=== PATIENT | female | born 1970 | race Caucasian/White ===

== ENCOUNTER 2017-08-01 09:08 | Emergency (ER) | payer BC ==
[2017-08-01 09:59] VITALS: BP 120/68
--- NOTE | 2017-08-01 10:08 | UC ---
Respiratory Complaint HPI - HPI Summary HPI Summary: 47 y/o female presents to the urgent care c/o persistent productive cough for 1 week. She also c/o of LF shoulder pain for the past 3 days. Pt states her cough is producing a green phlegm at times. Subjective fever at home. She has been taking Nyquil to alleviate symptoms. However about 3 days ago she started with shoulder pain. She hasn't been able to raise her arm. Pain is 7/10. She has been taking Naproxen PO for pain. She doesn't recall any injury. Pt denies SOB, chest pain, abdominal pain, numbness or tingling over the left upper extremity, N/V/D - History of Current Complaint Chief Complaint: UCGeneralIllness Stated Complaint: CONGESTION,SHOULDER PAIN Time Seen by Provider: 08/01/17 10:05 Hx Obtained From: Patient Hx Last Menstrual Period: 10 yrs ago - just had IUD removed Onset/Duration: Gradual Onset, Lasting Weeks - 1 week, Still Present Timing: Constant Severity Initially: Mild Severity Currently: Moderate Pain Intensity: 7 - Shoulder pain Pain Scale Used: 0-10 Numeric Character: Cough: Productive, Sputum Description: - green Aggravating Factors: Deep Breaths Alleviating Factors: OTC Meds Associated Signs And Symptoms: Positive: Fever - subjective at home - Risk Factors Pulmonary Embolism Risk Factors: Negative Cardiac Risk Factors: Negative Pseudomonas Risk Factors: Negative Tuberculosis Risk Factors: Negative - Allergies/Home Medications Allergies/Adverse Reactions: Allergies Allergy/AdvReac Type Severity Reaction Status Date / Time No Known Allergies Allergy Verified 08/01/17 09:54 Home Medications: Home Medications [id number]-Boloyepbsa-Trolj [Vicks Nyquil Severe Cold 5-6.25-10-325 mg] 1 tab PO BEDTIME PRN 08/01/17 [History Confirmed 08/01/17] PMH/Surg Hx/FS Hx/Imm Hx Previously Healthy: Yes - Pt denies PMHX - Surgical History Surgical History: Yes Surgery Procedure, Year, and Place: lumpectomy for pre hyperplasia - Family History Known Family History: Positive: Cardiac Disease - grandmother, Diabetes - grandmother Negative: Hypertension - Social History Occupation: Employed Full-time Lives: With Family Alcohol Use: Occasionally Substance Use Type: None Smoking Status (MU): Heavy Every Day Tobacco Smoker Type: Cigarettes Amount Used/How Often: 1/2 ppd Length of Time of Smoking/Using Tobacco: started age 13 Review of Systems Constitutional: Fever - subjective at home Skin: Negative Eyes: Negative ENT: Negative Respiratory: Cough - productive with green plegm Cardiovascular: Negative Gastrointestinal: Negative Genitourinary: Negative Motor: Negative Neurovascular: Negative Musculoskeletal: Other: - LF shoulder pain Neurological: Negative Psychological: Negative Is Patient Immunocompromised?: No All Other Systems Reviewed And Are Negative: Yes Physical Exam Triage Information Reviewed: Yes Appearance: Well-Appearing, No Pain Distress, Well-Nourished, Obese Vital Signs: Initial Vital Signs Temp 99.7 F 08/01/17 09:55 Pulse 106 08/01/17 09:55 Resp 16 08/01/17 09:55 BP 120/68 08/01/17 09:55 Pulse Ox 99 08/01/17 09:55 Vital Signs Reviewed: Yes Eye Exam: Normal Eyes: Positive: Conjunctiva Clear - PERRLA, EOMI ENT Exam: Normal ENT: Positive: Normal ENT inspection, Hearing grossly normal, Pharynx normal, Nasal congestion - edematous nasal mucosa, Nasal drainage - yellowish discharge , TMs normal Neck exam: Normal Neck: Positive: Supple, Nontender, No Lymphadenopathy Respiratory Exam: Normal Respiratory: Positive: Chest non-tender, Lungs clear, Normal breath sounds, No respiratory distress Cardiovascular Exam: Normal Cardiovascular: Positive: RRR, No Murmur, Pulses Normal, Brisk Capillary Refill Abdominal Exam: Normal Abdomen Description: Positive: Nontender, No Organomegaly, Soft. Negative: CVA Tenderness (R), CVA Tenderness (L) Bowel Sounds: Positive: Present Musculoskeletal: Positive: Other: - LF shoulder: The L shoulder is with/without obvious asymmetry or deformity when compared to the R shoulder. No surface trauma, ecchymosis, crepitus. No bony deformity or prominence of humeral head. No erythema, warmth. NT to palpation over the clavicle,scapula. positive tenderness over Acromoclavicular joint and humeral head with mild swelling, NT to palpation of the bicipital groove . NT to palpation of the muscles of the sternocleidomastoid, pectorals, biceps/triceps, deltoid, trapezius, . Limited ROM due to pain specially in adduction and abduction.on both passive and active, internal/external rotation, flexion/extension. "empty can and drop arm test unable to performe due to pain. No axillary tenderness or lymphadenopathy. Normal sensation over the deltoid and fingers. Distal motor and neurovascular status is intact. Neurological Exam: Normal Psychological Exam: Normal Skin Exam: Normal UC Diagnostic Evaluation - Laboratory O2 Sat by Pulse Oximetry: 99 Respiratory Course/Dx - Course Course Of Treatment: 47 y/o female presents to the urgent care c/o persistent productive cough for 1 week. She also c/o of LF shoulder pain for the past 3 days. Pt states her cough is producing a green phlegm at times. Subjective fever at home. She has been taking Nyquil to alleviate symptoms. However about 3 days ago she started with shoulder pain. She hasn't been able to raise her arm. Pain is 7/10. She has been taking Naproxen PO for pain. She doesn't recall any injury. Pt denies SOB, chest pain, abdominal pain, numbness or tingling over the left upper extremity, N/V/D. Hx obtained. Pt LMP: 10 years ago with IUD just recently removed 2 weeks ago. test orderd; result:negative LF shoulder X-ray ordered: Impression: Soft tisuue calcification over the humeral head observed, suggestive of calcific tendinopathy. No acute osseous injury observed. Pt's Rx Naproxen PO an Prednisone PO taper dose to alleviate symptoms. Shoulder immobilized with a shoulder sling for 2-3 days. Advised to f/ u with PT referral for further evaluation and Orthopdeci referral if not improvement of symptoms. Pt also with upper respiratory infection, Rx TesssaloN PO for cough advised to increse fluid intake, and rest. Pt understood and agreed with plan of care and left the clinic ambulating. - Differential Dx/Diagnosis Differential Diagnosis/HQI/PQRI: Asthma, Bronchitis, Laryngitis, Sinusitis, Other - Frozen shoulder, tendonitis, Provider Diagnoses: 1-Left shoulder pain. 2-upper respiratory infections Discharge - Discharge Plan Condition: Stable Disposition: HOME Prescriptions: Benzonatate CAP* [Tessalon 100 MG CAP*] 100 mg PO TID #15 cap Naproxen TAB* [Naprosyn 250 mg TAB*] 500 mg PO Q8H PRN #30 tab PRN Reason: Pain predniSONE TAB* [Deltasone TAB*] 20 mg PO DAILY #11 tab Patient Education Materials: Calcific Tendinitis (ED), Cold Symptoms (ED) Referrals: Loreta Bejarano MD [Primary Care Provider] - 1 Week Guilherme Woo MD [Medical Doctor] - 3 Days Additional Instructions: 1-Please take medications as directed to alleviate pain and swelling. 2-Please apply ice, keep your shoulder immobilized with the shoulder sling until you see your Orthopedic. 3-Please F/u Physical Therapy referral for further evaluation and treatment. 4- Please f/u with Orthopedic or your PCP in 1 week is not improvement of symptoms for further evaluation and treatment. 5- Please take Tessalon tabs to alleviate cough, increase fluid intake, rest eat well
--- NOTE | 2017-08-01 11:00 | RAD ---
HISTORY: Left shoulder pain COMPARISONS: None VIEWS: 4, Frontal internal rotation, external rotation, outlet, and axillary views of the left shoulder FINDINGS: BONE DENSITY: Normal. BONES: There is no displaced fracture. JOINTS: There is no arthropathy. ALIGNMENT: There is no dislocation. SOFT TISSUES: There is soft tissue calcification along the head of the left humerus. OTHER FINDINGS: None. IMPRESSION: SOFT TISSUE CALCIFICATIONS SUGGESTIVE OF A CALCIFIC TENDINOPATHY. NO ACUTE OSSEOUS INJURY. IF SYMPTOMS PERSIST, RECOMMEND REPEAT IMAGING
== END 2017-08-01 11:39 | disposition home or self-care (01) ==
LOC: UCCORT 09:08
DX: M25.512 Pain in left shoulder (principal); J06.9 Acute upper respiratory infection, unspecified; Z32.02 Encounter for pregnancy test, result negative
CPT/HCPCS: 84702; 99213; G0463

== ENCOUNTER 2019-01-16 07:43 | Emergency (ER) | payer BC ==
[2019-01-16 07:59] VITALS: BP 116/77
--- NOTE | 2019-01-16 08:16 | UC ---
Respiratory Complaint HPI - HPI Summary HPI Summary: 48-year-old female presents with 2 week history of nasal congestion, sinus pressure, bilateral ear pressure, sore throat, and a nonproductive cough. States sore throat has subsided at this time however other symptoms have been persistent. Associated with some mild shortness of breath and she is noted a sensation of "congestion" in her left lower chest. Denies fever, chills, abdominal pain, nausea, vomiting, diarrhea. - History of Current Complaint Chief Complaint: UCGeneralIllness Stated Complaint: CHEST CONGESTION Time Seen by Provider: 01/16/19 08:10 Hx Obtained From: Patient Hx Last Menstrual Period: currently Pain Intensity: 0 - Allergies/Home Medications Allergies/Adverse Reactions: Allergies Allergy/AdvReac Type Severity Reaction Status Date / Time No Known Allergies Allergy Verified 01/16/19 07:58 PMH/Surg Hx/FS Hx/Imm Hx Previously Healthy: Yes - Denies significant PMH - Surgical History Surgical History: Yes Surgery Procedure, Year, and Place: lumpectomy for pre hyperplasia - Family History Known Family History: Positive: Cardiac Disease - grandmother, Diabetes - grandmother Negative: Hypertension - Social History Occupation: Employed Full-time Lives: With Family Alcohol Use: Occasionally Substance Use Type: None Smoking Status (MU): Heavy Every Day Tobacco Smoker Type: Cigarettes Amount Used/How Often: 1/2 ppd Length of Time of Smoking/Using Tobacco: started age 13 Review of Systems All Other Systems Reviewed And Are Negative: Yes Constitutional: Negative: Fever Skin: Negative: Rash Eyes: Negative: Drainage, Eye Redness ENT: Positive: Sore Throat, Ear Ache - Fullness, Nasal Discharge, Sinus Congestion, Sinus Pain/Tenderness Respiratory: Positive: Shortness Of Breath, Cough Cardiovascular: Negative: Palpitations, Chest Pain Gastrointestinal: Negative: Abdominal Pain, Vomiting, Diarrhea, Nausea Genitourinary: Positive: Negative Musculoskeletal: Positive: Negative Neurological: Positive: Negative Is Patient Immunocompromised?: No Physical Exam - Summary Physical Exam Summary: GENERAL APPEARANCE: Well developed, well nourished, alert and cooperative, and appears to be in no acute distress. EYES: Conjunctiva clear. No drainage. Vision is grossly intact. EARS: External auditory canals and tympanic membranes clear, hearing grossly intact. NOSE: Mild-moderate nasal congestion. No nasal discharge. Maxillary sinus tenderness. THROAT: Pharyngeal cobblestoning with postnasal drip. No tonsilar inflammation, swelling, exudate, or lesions. Uvula midline. Oral cavity normal. Teeth and gingiva in good general condition. NECK: Neck supple, non-tender without lymphadenopathy. CARDIAC: Normal S1 and S2. No S3, S4 or murmurs. Rhythm is regular. There is no peripheral edema, cyanosis or pallor. Extremities are warm and well perfused. Capillary refill is less than 2 seconds. Peripheral pulses intact. LUNGS: Clear to auscultation without rales, rhonchi, wheezing or diminished breath sounds. Non-productive cough. ABDOMEN: Positive bowel sounds. Soft, nondistended, nontender. No guarding or rebound. No masses or hepatosplenomegally. MUSKULOSKELETAL: ROM intact to all extremities. No joint erythema or tenderness. Normal muscular development. Normal gait. SKIN: Skin normal color, texture and turgor with no lesions or eruptions. Triage Information Reviewed: Yes Vital Signs: Initial Vital Signs Temp 97.6 F 01/16/19 07:56 Pulse 86 01/16/19 07:56 Resp 18 01/16/19 07:56 BP 116/77 01/16/19 07:56 Pulse Ox 100 01/16/19 07:56 Vital Signs Reviewed: Yes Respiratory Course/Dx - Course Course Of Treatment: 48-year-old female presents with 2 week history of nasal congestion, sinus pressure, bilateral ear pressure, sore throat, and a nonproductive cough. States sore throat has subsided at this time however other symptoms have been persistent. Associated with some mild shortness of breath and she is noted a sensation of "congestion" in her left lower chest. Denies fever, chills, abdominal pain, nausea, vomiting, diarrhea. Afebrile. Vital signs stable. Exam is remarkable for moderate nasal congestion, maxillary sinus tenderness, pharyngeal cobblestoning with postnasal drip, clear bilateral breath sounds, and a nonproductive cough. Will treat her for acute bacterial sinusitis considering the duration of her symptoms. I suspect that her cough is likely from some postnasal drip. Have recommended Augmentin 875 mg twice a day 10 days as well as symptomatic treatment including fluticasone nasal spray, and Tessalon Perles as needed for cough. She is to follow-up with her primary care provider in 7 days if symptoms do not improve. Anticipatory guidance and warning symptoms reviewed with patient. Verbalizes understanding and agrees with plan of care. - Differential Dx/Diagnosis Differential Diagnosis/HQI/PQRI: Bronchitis, Lower Resp Infection, Sinusitis, Other - URI Provider Diagnosis: Sinusitis, Cough Discharge - Sign-Out/Discharge Documenting (check all that apply): Patient Departure All imaging exams completed and their final reports reviewed: No Studies - Discharge Plan Condition: Stable Disposition: HOME Prescriptions: Amoxicillin/Clavulanate TAB* [Augmentin TAB 875*] 875 mg PO BID #20 tab Benzonatate CAP* [Tessalon 100 MG CAP*] 100 mg PO TID PRN #30 cap PRN Reason: Cough Fluticasone NASAL SPRAY 50MCG* [Flonase NASAL SPRAY 50MCG*] 2 spray BOTH NARES DAILY #1 btl Patient Education Materials: Sinusitis (ED) Referrals: Loren García MD [Primary Care Provider] - Additional Instructions: Your history and exam are consistent with a sinus infection. Considering the duration of your symptoms we will treat you with an antibiotic. Take Augmentin 1 tab twice a day for 10 days. Take with food to avoid an upset stomach. Be sure to finish the entire course even if feeling better. Drink plenty of fluids. Use a saline rinse kit such as Neti Pot or NeilMed at least twice a day to help thin secretions and promote drainage of the sinuses. Use fluticasone (Flonase) nasal spray 2 sprays each nostril once daily. Use an over the counter decongestant such as Sudafed according to directions to help with congestion. Take Tessalon Perles 1 cap every 8 hours as needed for cough. Take over the counter acetaminophen (Tylenol) or ibuprofen (Advil, Motrin) according to directions as needed for pain or fever. Follow up with your primary care provider in 7 days if symptoms persist. Seek immediate medical attention in the emergency room if you have fever greater than 100.5 F despite taking acetaminophen or ibuprofen, have chest pain , difficulty breathing, are unable to swallow, or have any worsening of symptoms. - Billing Disposition and Condition Condition: STABLE Disposition: Home
== END 2019-01-16 08:32 | disposition home or self-care (01) ==
LOC: UCCORT 07:43
DX: J01.90 Acute sinusitis, unspecified (principal); R05 Cough; F17.210 Nicotine dependence, cigarettes, uncomplicated; B96.89 Other specified bacterial agents as the cause of diseases classified elsewhere
CPT/HCPCS: 99212; G0463